=== PATIENT | female | born 1960 | race African-American/Black ===

== ENCOUNTER 2023-11-21 15:33 | Emergency (ER) | payer MEDICAID ==
[~2023-11-21] VITALS: Ht 177.8 cm; Wt 195.0 kg
[2023-11-21 15:35] VITALS: O2SAT 100
[2023-11-21] MEDS: METHOCARBAMOL 500MG TABLET PO ONE (16:25)
[2023-11-21] MEDS: ACETAMINOPHEN 500MG TABLET PO ONE (16:31)
[2023-11-21] MEDS ORDERED: HYDROCODONE/ACETAMINOPHEN 10/325MG TABLET PO ONE (16:45)
[2023-11-21] MEDS: HYDROCODONE/ACETAMINOPHEN 10/325MG TABLET PO NR (18:26)
[2023-11-21 20:00] VITALS: BP 112/53; PULSE 97; RESP 21; TEMP 97.9
[2023-11-24] MEDS ORDERED: METO-539 PO (08:15)
[2023-11-24] MEDS ORDERED: LIP40 PO (08:15)
[2023-11-24] MEDS ORDERED: GABA-532 PO (08:15)
== END 2023-11-21 20:34 | disposition home or self-care (01) ==
LOC: ER 15:54
DX: M53.3 Sacrococcygeal disorders, not elsewhere classified (principal); F17.200 Nicotine dependence, unspecified, uncomplicated; J44.1 Chronic obstructive pulmonary disease with (acute) exacerbation; I11.0 Hypertensive heart disease with heart failure; I50.9 Heart failure, unspecified; Z88.0 Allergy status to penicillin; Z88.6 Allergy status to analgesic agent; Z88.2 Allergy status to sulfonamides
CPT/HCPCS: 72192; 93971; 99284